=== PATIENT | female | born 1940 | race Caucasian/White ===

== ENCOUNTER 2018-02-12 08:00 | Outpatient (CLI) | payer MEDICARE, OTHER ==
[2018-02-12 12:53] LABS: BASOPHILS # (AUTO) 0.1 10^3/uL (0.0-0.1); BASOPHILS % (AUTO) 0.8 %; EOSINOPHILS # (AUTO) 0.2 10^3/uL (0.0-0.7); EOSINOPHILS % (AUTO) 1.8 %; LYMPHOCYTES # (AUTO) 1.9 10^3/uL (1.5-3.5); LYMPHOCYTES % (AUTO) 20.4 %; MEAN CORPUSCULAR HEMOGLOBIN 29.4 pg (27.0-31.0); MEAN CORPUSCULAR HGB CONC 33.4 g/dL (32.0-36.0); MEAN CORPUSCULAR VOLUME 88.1 fL (81.0-99.0); MEAN PLATELET VOLUME 8.4 fL (7.9-10.8); MONOCYTES # (AUTO) 0.8 10^3/uL (0.0-1.0); MONOCYTES % (AUTO) 8.2 %; NEUTROPHILS # (AUTO) 6.5 10^3/uL (1.5-6.6); NEUTROPHILS % (AUTO) 68.8 %; PLT - PLATELET COUNT 256 10^3/uL (130-450); RED BLOOD COUNT 4.41 10^6/uL (4.20-5.40); RED CELL DISTRIBUTION WIDTH 13.5 % (12.0-15.0); WHITE BLOOD COUNT 9.4 x10^3/uL (4.8-10.8)
[2018-02-12 13:08] LABS: HB2 TOTAL 14.3 g/dL; HEMOGLOBIN A1C 1.45 g/dL; HEMOGLOBIN A1C % 11.4 % (4.6-6.2)
[2018-02-12 13:17] LABS: ALBUMIN 4.1 g/dL (3.2-5.5); ALBUMIN/GLOBULIN RATIO 1.2 (1.0-2.2); ALKALINE PHOSPHATASE 63 IU/L (42-121); ALT ALANINE AMINOTRANSFERASE 17 IU/L (10-60); AST ASPARTATE AMINOTRANSFERASE 21 IU/L (10-42); BUN - BLOOD UREA NITROGEN 11 mg/dL (6-20); CALCIUM 9.5 mg/dL (8.5-10.3); CARBON DIOXIDE - CO2 28 mmol/L (21-32); CHLORIDE 102 mmol/L (101-111); CHOL/HDL RATIO 4.1 (<4.4); CHOLESTEROL 244 mg/dL; CREATININE 0.4 mg/dL (0.4-1.0); GFR - MDRD 156 (>89); GLUCOSE 171 mg/dL (70-100); HDL CHOLESTEROL 59 mg/dL; LDL CHOLESTEROL,CALCULATED 163 mg/dL; LDL/HDL RATIO 2.8 (<4.4); SODIUM 138 mmol/L (135-145); TOTAL PROTEIN 7.5 g/dL (6.7-8.2); VLDL CHOLESTEROL 22 mg/dL
== END 2018-02-12 08:01 | disposition home or self-care (01) ==
LOC: LAB.WCP 08:00
PROVIDERS: ATTEND Physician Assistant
DX: Z00.00 Encounter for general adult medical examination without abnormal findings (principal); I10 Essential (primary) hypertension; E11.9 Type 2 diabetes mellitus without complications; E78.5 Hyperlipidemia, unspecified
CPT/HCPCS: 36415; 80053; 80061; 83036; 83721; 84443; 85025

== ENCOUNTER 2018-04-21 19:25 | Emergency (ER) | payer MEDICARE, OTHER ==
--- NOTE | 2018-04-21 23:02 | ED Physician Documentation ---
PD HPI Fall - Stated complaint Stated Complaint: GLF/HD INJ - Chief complaint Chief Complaint: Trauma Hd/Nk - History obtained from History obtained from: Patient, Family - History of Present Illness Mechanism of injury: Slipped Fall distance: Standing position Where injury occurred: Home Timing - onset: Enter time (1844) Injury(ies) location: Head, Face, Left Lower Extremity Quality of pain: Pain Associated symptoms: No: LOC, AMS, Amnesia, Seizures, Ear drainage, Nasal drainage, Neck pain, Weakness, Paresthesias, Dyspnea, Nausea / vomiting, Hematemesis, Abdominal distension Symptoms improve with: Rest Worsens with: Movement, Palpation Contributing factors: No: Anticoagulated Similar symptoms before: Has not had sx before Recently seen: Not recently seen - Additional information Additional information: 77-year-old female with history of type 2 diabetes was outside watering her plants and she noted that the bottoms of her shoes seemed a little slippery and then as she was being very cautious walking on wet cement she slipped and fell. She landed on her face bruising her left forehead and bruising her left knee and ankle. She has been able to walk into the emergency department she has some pain in her ankle laterally. She has an abrasion to the knee. Review of Systems Constitutional: denies: Fever Eyes: denies: Decreased vision Ears: denies: Ear pain Nose: denies: Rhinorrhea / runny nose, Congestion Throat: denies: Sore throat Cardiac: denies: Chest pain / pressure Respiratory: denies: Dyspnea, Cough GI: denies: Abdominal Pain, Nausea, Vomiting : denies: Dysuria, Frequency Skin: denies: Rash Musculoskeletal: denies: Neck pain, Back pain, Extremity pain Neurologic: reports: Head injury. 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 : None HEENT: None Psych: None Musculoskeletal: None Derm: None - Past Surgical History Past Surgical History: Yes General: Cholecystectomy Ortho: Knee replacement - Present Medications Home Medications: Ambulatory Orders Medication Instructions Recorded Confirmed Aspirin 04/21/18 Insulin Regular, Human [Humulin R] 04/21/18 04/21/18 metFORMIN [Glucophage] 04/21/18 - Allergies Allergies/Adverse Reactions: Allergies Allergy/AdvReac Type Severity Reaction Status Date / Time Sulfa (Sulfonamide AdvReac Itching Verified 04/21/18 19:42 Antibiotics) - Social History Does the pt smoke?: No Smoking Status: Never smoker Does the pt drink ETOH?: No Does the pt have substance abuse?: No - Immunizations Immunizations are current?: Yes - POLST Patient has POLST: No PD ED PE NORMAL - Vitals Vital signs reviewed: Yes (hypertensive mild ) - General General: Alert and oriented X 3, No acute distress, Well developed/nourished - HEENT HEENT: PERRL, EOMI, Other (There is a hematoma to the left forehead that is impressive with abrasion as well to the hematoma and the nasal bridge. ) - Neck Neck: Supple, no meningeal sign, No bony TTP - Cardiac Cardiac: RRR, No murmur - Respiratory Respiratory: No respiratory distress, Clear bilaterally - Abdomen Abdomen: Soft, Non tender - Back Back: No CVA TTP, No spinal TTP - Derm Derm: Normal color, Warm and dry, No rash - Extremities Extremities: No deformity, No edema, Other (There is an abrasion to the left knee over the patella and the ligaments are stable to testing and there is no eviedence of an effusion. There is tenderness to the lateral malleolus and to the distal fibula on the left. There is no swelling and the distal n/v is intact. 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, No motor deficit, No sensory deficit, Normal speech Eye Opening: Spontaneous Motor: Obeys Commands Verbal: Oriented GCS Score: 15 - Psych Psych: Normal mood, Normal affect Results - Vitals Vitals: Vital Signs - 24 hr 04/21/18 04/21/18 04/21/18 19:37 21:07 23:03 Temperature 36.2 C L 36.2 C L Heart Rate 72 77 Respiratory 20 18 18 Rate Blood Pressure 162/91 H 143/62 H O2 Saturation 98 98 Oxygen O2 Source Room air - Labs Labs: Laboratory Tests 04/21/18 23:00 Urine Color YELLOW Urine Clarity CLEAR Urine pH 5.5 Ur Specific [place] <=1.005 Urine Protein NEGATIVE Urine Glucose (UA) NEGATIVE Urine Ketones NEGATIVE Urine Occult Blood NEGATIVE Urine Nitrite NEGATIVE Urine Bilirubin NEGATIVE Urine Urobilinogen 0.2 (NORMAL) Ur Leukocyte Esterase NEGATIVE Ur Microscopic Review NOT INDICATED Urine Culture Comments NOT INDICATED - Rads (name of study) left ankle Radiology: Prelim report reviewed (Impression: No evidence of fracture or dislocation.), EMP read indepedently, See rad report Procedures - IVC sono (time) 2300 Bedside IVC sono: IVC measures (cm) (1.20), IVC collapsed c insp (cm) (complete) , Dehydration (est 1 liter deficit.) PD MEDICAL DECISION MAKING - ED course Complexity details: reviewed results, re-evaluated patient, considered differential, d/w patient, d/w family ED course: 77-year-old diabetic female has slipped on water with slick shoes fallen and struck her face. She did not have loss of consciousness she has no signs of concussion at this time she does have a hematoma to her forehead and she has some pain in her left ankle and abrasion to her knee. X-rays of the ankle without evidence of fracture. Urinalysis was normal. She was mildly dehydrated on interrogation of the inferior vena cava. She is able take oral fluids. - Sepsis Event Vital Signs: Vital Signs - 24 hr 04/21/18 04/21/18 04/21/18 19:37 21:07 23:03 Temperature 36.2 C L 36.2 C L Heart Rate 72 77 Respiratory 20 18 18 Rate Blood Pressure 162/91 H 143/62 H O2 Saturation 98 98 Oxygen O2 Source Room air Departure - Departure Disposition: 01 Home, Self Care Clinical Impression: Dehydration Traumatic hematoma of forehead Qualifiers: Encounter type: initial encounter Qualified Code(s): S00.83XA - Contusion of other part of head, initial encounter Ankle sprain Qualifiers: Encounter type: initial encounter Involved ligament of ankle: calcaneofibular ligament Laterality: left Qualified Code(s): S93.412A - Sprain of calcaneofibular ligament of left ankle, initial encounter Condition: Stable Instructions: ED Dehydration Follow-Up: Estelle Maier PA [Primary Care Provider] -
[2018-04-21 23:09] LABS: BILIRUBIN,URINE NEGATIVE (NEGATIVE); GLUCOSE, URINE (UA) NEGATIVE (NEGATIVE); KETONES,URINE (UA) NEGATIVE (NEGATIVE); LEUKOCYTE ESTERASE, URINE NEGATIVE (NEGATIVE); NITRITE,URINE NEGATIVE (NEGATIVE); OCCULT BLOOD,URINE NEGATIVE (NEGATIVE); PH,URINE 5.5 PH (5.0-7.5); PROTEIN,URINE NEGATIVE (NEGATIVE); UROBILINOGEN,URINE 0.2 (NORMAL) E.U./dL (NORMAL)
[2018-04-21 23:14] LABS: CLARITY,URINE CLEAR (CLEAR)
--- NOTE | 2018-04-21 23:17 | XRAY Report ---
Procedure Date: 04/21/2018 Accession Number: [id number] / [id number] Procedure: XR - Ankle 3 View LT CPT Code: FULL RESULT: EXAM: LEFT ANKLE RADIOGRAPHY EXAM DATE: 04/21/2018 11:10 PM. CLINICAL HISTORY: Fall lateral pain. COMPARISON: None. TECHNIQUE: 3 views. FINDINGS: Bones: No fracture or focal bony lesion. Joints: No evidence of dislocation. Soft Tissues: There are calcifications of the plantar soft tissues. IMPRESSION: No evidence of fracture or dislocation. RADIA
[2018-04-21 23:36] VITALS: BP 168/75
== END 2018-04-21 23:50 | disposition home or self-care (01) ==
LOC: ED 19:25
DX: S00.83XA Contusion of other part of head, initial encounter (principal); S00.31XA Abrasion of nose, initial encounter; S80.212A Abrasion, left knee, initial encounter; W01.198A Fall on same level from slipping, tripping and stumbling with subsequent striking against other object, initial encounter; Y93.H2 Activity, gardening and landscaping; Y92.007 Garden or yard of unspecified non-institutional (private) residence as the place of occurrence of the external cause
CPT/HCPCS: 81001; 81003; 87086; 99283; 99284

== ENCOUNTER 2018-09-15 09:14 | Outpatient (CLI) | payer MEDICARE, OTHER ==
[2018-09-15 13:22] LABS: HB2 TOTAL 12.7 g/dL; HEMOGLOBIN A1C 0.86 g/dL; HEMOGLOBIN A1C % 8.3 % (4.6-6.2)
== END 2018-09-15 23:59 | disposition home or self-care (01) ==
LOC: LAB.WCP 09:14
PROVIDERS: ATTEND Physician Assistant
DX: E11.65 Type 2 diabetes mellitus with hyperglycemia (principal)
CPT/HCPCS: 36415; 83036

== ENCOUNTER 2019-08-10 08:00 | Outpatient (CLI) | payer MEDICARE, OTHER ==
[2019-08-10 18:21] LABS: BASOPHILS # (AUTO) 0.1 10^3/uL (0.0-0.1); EOSINOPHILS # (AUTO) 0.2 10^3/uL (0.0-0.7); EOSINOPHILS % (AUTO) 2.5 %; HGB - HEMOGLOBIN 12.3 g/dL (12.0-16.0); LYMPHOCYTES % (AUTO) 31.5 %; MEAN CORPUSCULAR HEMOGLOBIN 28.3 pg (27.0-31.0); MEAN CORPUSCULAR HGB CONC 30.6 g/dL (32.0-36.0); MEAN CORPUSCULAR VOLUME 92.4 fL (81.0-99.0); MEAN PLATELET VOLUME 10.7 fL (7.9-10.8); MONOCYTES # (AUTO) 0.5 10^3/uL (0.0-1.0); MONOCYTES % (AUTO) 8.6 %; NEUTROPHILS # (AUTO) 3.5 10^3/uL (1.5-6.6); NEUTROPHILS % (AUTO) 56.1 %; PLT - PLATELET COUNT 279 10^3/uL (130-450); RED BLOOD COUNT 4.35 10^6/uL (4.20-5.40); WHITE BLOOD COUNT 6.3 x10^3/uL (4.8-10.8)
[2019-08-10 18:39] LABS: ALBUMIN 4.4 g/dL (3.2-5.5); ALBUMIN/GLOBULIN RATIO 1.3 (1.0-2.2); ALKALINE PHOSPHATASE 58 IU/L (42-121); ALT ALANINE AMINOTRANSFERASE 26 IU/L (10-60); AST ASPARTATE AMINOTRANSFERASE 25 IU/L (10-42); BILIRUBIN,TOTAL 0.7 mg/dL (0.2-1.0); BUN - BLOOD UREA NITROGEN 10 mg/dL (6-20); CALCIUM 9.8 mg/dL (8.5-10.3); CARBON DIOXIDE - CO2 27 mmol/L (21-32); CHLORIDE 103 mmol/L (101-111); CHOL/HDL RATIO 2.8 (<4.4); CHOLESTEROL 169 mg/dL; CREATININE 0.5 mg/dL (0.4-1.0); GFR - MDRD 120 (>89); GLUCOSE 139 mg/dL (70-100); HDL CHOLESTEROL 60 mg/dL; LDL CHOLESTEROL,CALCULATED 90 mg/dL; LDL/HDL RATIO 1.5 (<4.4); SODIUM 140 mmol/L (135-145); TOTAL PROTEIN 7.8 g/dL (6.7-8.2); VLDL CHOLESTEROL 19 mg/dL
[2019-08-10 18:40] LABS: CREATININE,URINE 72.4 mg/dL; MICROALBUM/CREATININE RATIO,UR 59.4 ug/mg (<30.0); MICROALBUMIN,URINE 4.3 mg/dL (0-300.0)
[2019-08-10 18:45] LABS: HB2 TOTAL 12.6 g/dL; HEMOGLOBIN A1C 1.29 g/dL; HEMOGLOBIN A1C % 11.5 % (4.6-6.2)
== END 2019-08-10 23:59 | disposition home or self-care (01) ==
LOC: LAB.WCP 08:00
PROVIDERS: ATTEND Physician Assistant
DX: E11.65 Type 2 diabetes mellitus with hyperglycemia (principal); I10 Essential (primary) hypertension
CPT/HCPCS: 36415; 80053; 80061; 82043; 82570; 83036; 83721; 84443; 85025

== ENCOUNTER 2019-10-14 09:59 | Outpatient (CLI) | payer MEDICARE, OTHER ==
[2019-10-14 19:17] LABS: ALBUMIN 4.1 g/dL (3.2-5.5); ALBUMIN/GLOBULIN RATIO 1.1 (1.0-2.2); ALKALINE PHOSPHATASE 76 IU/L (42-121); ALT ALANINE AMINOTRANSFERASE 23 IU/L (10-60); AST ASPARTATE AMINOTRANSFERASE 24 IU/L (10-42); BILIRUBIN,TOTAL 0.4 mg/dL (0.2-1.0); BUN - BLOOD UREA NITROGEN 15 mg/dL (6-20); CALCIUM 9.7 mg/dL (8.5-10.3); CARBON DIOXIDE - CO2 24 mmol/L (21-32); CHLORIDE 107 mmol/L (101-111); CHOL/HDL RATIO 2.5 (<4.4); CHOLESTEROL 166 mg/dL; CREATININE 0.7 mg/dL (0.4-1.0); GFR - MDRD 81 (>89); GLUCOSE 242 mg/dL (70-100); HDL CHOLESTEROL 67 mg/dL; LDL CHOLESTEROL,CALCULATED 83 mg/dL; LDL/HDL RATIO 1.2 (<4.4); SODIUM 141 mmol/L (135-145); TOTAL PROTEIN 7.7 g/dL (6.7-8.2); VLDL CHOLESTEROL 16 mg/dL
[2019-10-14 20:10] LABS: HB2 TOTAL 11.8 g/dL; HEMOGLOBIN A1C 0.83 g/dL; HEMOGLOBIN A1C % 8.6 % (4.6-6.2)
== END 2019-10-14 23:59 | disposition home or self-care (01) ==
LOC: LAB.WCP 09:59
PROVIDERS: ATTEND Family Medicine
DX: E11.65 Type 2 diabetes mellitus with hyperglycemia (principal)
CPT/HCPCS: 36415; 80053; 80061; 83036; 83721

== ENCOUNTER 2020-08-28 18:57 | Emergency (ER) | payer MEDICARE, OTHER ==
[2020-08-28 19:27] LABS: BASOPHILS % (AUTO) 0.6 %; EOSINOPHILS # (AUTO) 0.1 10^3/uL (0.0-0.7); EOSINOPHILS % (AUTO) 1.5 %; HGB - HEMOGLOBIN 12.7 g/dL (12.0-16.0); LYMPHOCYTES % (AUTO) 28.9 %; MEAN CORPUSCULAR HEMOGLOBIN 29.4 pg (27.0-31.0); MEAN CORPUSCULAR HGB CONC 32.8 g/dL (32.0-36.0); MEAN CORPUSCULAR VOLUME 89.6 fL (81.0-99.0); MEAN PLATELET VOLUME 9.6 fL (7.9-10.8); MONOCYTES # (AUTO) 0.5 10^3/uL (0.0-1.0); MONOCYTES % (AUTO) 6.9 %; NEUTROPHILS # (AUTO) 4.2 10^3/uL (1.5-6.6); NEUTROPHILS % (AUTO) 61.7 %; PLT - PLATELET COUNT 262 10^3/uL (130-450); RED BLOOD COUNT 4.32 10^6/uL (4.20-5.40); RED CELL DISTRIBUTION WIDTH 12.8 % (12.0-15.0); WHITE BLOOD COUNT 6.8 x10^3/uL (4.8-10.8)
[2020-08-28 19:28] LABS: VBG BASE EXCESS -2.8 mmol/L (-2 - +2); VBG PCO2 46.4 mmHg (41-51); VBG PH 7.322 (7.31-7.41); VBG PO2 24.6 mmHg (25-47); VBG TOTAL CO2 24.9 mmol/L (24-29)
[2020-08-28 19:31] LABS: KETONES, SERUM (ACETEST) NEGATIVE (NEGATIVE)
--- NOTE | 2020-08-28 19:35 | ED Physician Documentation ---
History of Present Illness - Stated complaint Stated Complaint: high blood sugar - Chief complaint Chief Complaint: General - History obtained from History obtained from: Patient - History of Present Illness Timing: Today Pain level max: 0 Pain level now: 0 - Additonal information Additional information: Patient is a 80-year-old female with a history of diabetes who presents to the emergency department after checking her blood sugar today and it read "high". She has no symptoms currently. She has been decreasing her Metformin because she is afraid that she will run out. She is also running low on her insulin. She does not yet have an appointment with her doctor. No vomiting. No chest pain. No fever. No chills. No recent illness. 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 : None HEENT: Other Psych: None Musculoskeletal: Osteoarthritis, Other Derm: None - Past Surgical History Past Surgical History: Yes General: Cholecystectomy Ortho: Knee replacement - Present Medications Home Medications: Ambulatory Orders Medication Instructions Recorded Confirmed Aspirin 1 tab PO DAILY 04/21/18 08/28/20 Atorvastatin Calcium 1 tab PO DAILY 10/06/18 08/28/20 Fluticasone Propionate 1 spray SARAH DAILY PRN 10/06/18 08/28/20 Telmisartan [Micardis] 1 tab PO DAILY 10/06/18 08/28/20 Cephalexin [Keflex] 500 mg PO Q6H #28 capsule 08/28/20 Insulin Glargine [Lantus Solostar] 16 units SQ DAILY #1 08/28/20 metFORMIN [Glucophage] 2 tab PO BID #120 tab 08/28/20 - Allergies Allergies/Adverse Reactions: Allergies Allergy/AdvReac Type Severity Reaction Status Date / Time Sulfa (Sulfonamide Allergy Anaphylaxis Verified 08/28/20 19:01 Antibiotics) acetaminophen [From Vicodin] AdvReac Unknown Verified 08/28/20 19:01 hydrocodone [From Vicodin] AdvReac Unknown Verified 08/28/20 19:01 lisinopril AdvReac Unknown Verified 08/28/20 19:01 - Social History Does the pt smoke?: No Smoking Status: Never smoker Does the pt drink ETOH?: No Does the pt have substance abuse?: No - Immunizations Immunizations are current?: Yes - POLST Patient has POLST: No PD ED PE NORMAL - Vitals Vital signs reviewed: Yes - General General: Alert and oriented X 3, No acute distress - HEENT HEENT: Moist mucous membranes - Neck Neck: Supple, no meningeal sign - Cardiac Cardiac: RRR - Respiratory Respiratory: No respiratory distress, Clear bilaterally - Abdomen Abdomen: Soft, Non tender, Non distended - Derm Derm: Warm and dry - Neuro Neuro: Alert and oriented X 3 Results - Vitals Vitals: Vital Signs - 24 hr 08/28/20 08/28/20 19:01 20:48 Temperature 36.6 C Heart Rate 76 70 Respiratory 16 18 Rate Blood Pressure 130/100 H 134/94 H O2 Saturation 100 97 Oxygen O2 Source Room air - Labs Labs: Microbiology 08/28/20 19:30 Urine Culture - Preliminary Urine,Clean Catch CULTURE IN PROGRESS. RESULTS TO FOLLOW. Laboratory Tests 08/28/20 08/28/20 08/28/20 19:05 19:19 19:19 WBC 6.8 RBC 4.32 Hgb 12.7 Hct 38.7 MCV 89.6 MCH 29.4 MCHC 32.8 RDW 12.8 Plt Count 262 MPV 9.6 Neut # (Auto) 4.2 Lymph # (Auto) 2.0 [place] # (Auto) 0.5 Eos # (Auto) 0.1 Baso # (Auto) 0.0 Absolute Nucleated RBC 0.00 Nucleated RBC % 0.0 VBG pH VBG pCO2 VBG pO2 VBG HCO3 VBG Total CO2 VBG O2 Saturation VBG Base Excess Sodium 134 L Potassium 3.9 Chloride 95 L Carbon Dioxide 25 Anion Gap 14.0 H BUN 15 Creatinine 0.7 Estimated GFR (MDRD) 81 L Glucose 411 H POC Whole Bld Glucose 380 H Estimat Average Glucose Hemoglobin A1c % Calcium 9.9 Total Bilirubin 0.6 AST 26 ALT 25 Alkaline Phosphatase 86 Total Protein 8.3 H Albumin 4.4 Globulin 3.9 Albumin/Globulin Ratio 1.1 Urine Color Urine Clarity Urine pH Ur Specific [place] Urine Protein Urine Glucose (UA) Urine Ketones Urine Occult Blood Urine Nitrite Urine Bilirubin Urine Urobilinogen Ur Leukocyte Esterase Urine RBC Urine WBC Urine WBC Clumps Ur Squamous Epith Cells Urine Bacteria Ur Microscopic Review Urine Culture Comments Serum Ketones NEGATIVE 08/28/20 08/28/20 08/28/20 19:19 19:19 19:30 WBC RBC Hgb Hct MCV MCH MCHC RDW Plt Count MPV Neut # (Auto) Lymph # (Auto) [place] # (Auto) Eos # (Auto) Baso # (Auto) Absolute Nucleated RBC Nucleated RBC % VBG pH 7.322 VBG pCO2 46.4 VBG pO2 24.6 L VBG HCO3 23.5 VBG Total CO2 24.9 VBG O2 Saturation 46.1 L VBG Base Excess -2.8 L Sodium Potassium Chloride Carbon Dioxide Anion Gap BUN Creatinine Estimated GFR (MDRD) Glucose POC Whole Bld Glucose Estimat Average Glucose 364 H Hemoglobin A1c % 14.3 H Calcium Total Bilirubin AST ALT Alkaline Phosphatase Total Protein Albumin Globulin Albumin/Globulin Ratio Urine Color YELLOW Urine Clarity HAZY Urine pH 5.5 Ur Specific [place] 1.010 Urine Protein NEGATIVE Urine Glucose (UA) >=1000 H Urine Ketones NEGATIVE Urine Occult Blood TRACE-INTA Urine Nitrite POSITIVE H Urine Bilirubin NEGATIVE Urine Urobilinogen 0.2 (NORMAL) Ur Leukocyte Esterase NEGATIVE Urine RBC 6-10 H Urine WBC >25 H Urine WBC Clumps PRESENT Ur Squamous Epith Cells RARE Squamous Urine Bacteria Many H Ur Microscopic Review INDICATED Urine Culture Comments INDICATED Serum Ketones PD MEDICAL DECISION MAKING - ED course Complexity details: reviewed results, re-evaluated patient, considered differential, d/w patient ED course: Patient with asymptomatic hyperglycemia. She does have a UTI and we will treat her for this. We will also refill her diabetic medications so that she can take her prescribed doses. Patient is well-appearing, nontoxic. Afebrile. Patient counseled regarding signs and symptoms for which I believe and urgent re- evaluation would be necessary. Patient with good understanding of and agreement to plan and is comfortable going home at this time This document was made in part using voice recognition software. While efforts are made to proofread this document, sound alike and grammatical errors may occur. Departure - Departure Disposition: 01 Home, Self Care Clinical Impression: Hyperglycemia UTI (urinary tract infection) Qualifiers: Urinary tract infection type: acute cystitis Hematuria presence: without hematuria Qualified Code(s): N30.00 - Acute cystitis without hematuria Condition: Good Instructions: ED UTI Cystitis Female Follow-Up: Estelle Maier PA [Primary Care Provider] - Within 3 Days Prescriptions: metFORMIN [Glucophage] 2 tab PO BID #120 tab Cephalexin [Keflex] 500 mg PO Q6H #28 capsule Insulin Glargine [Lantus Solostar] 16 units SQ DAILY #1 Comments: We will refill your medications for you tonight. Please take all antibiotics until gone as well. Follow-up with your doctor closely this week for repeat evaluation. Return if you worsen Discharge Date/Time: 08/28/20 20:48
[2020-08-28 19:37] LABS: ALBUMIN 4.4 g/dL (3.2-5.5); ALBUMIN/GLOBULIN RATIO 1.1 (1.0-2.2); ALKALINE PHOSPHATASE 86 IU/L (42-121); ALT ALANINE AMINOTRANSFERASE 25 IU/L (10-60); AST ASPARTATE AMINOTRANSFERASE 26 IU/L (10-42); BILIRUBIN,TOTAL 0.6 mg/dL (0.2-1.0); BUN - BLOOD UREA NITROGEN 15 mg/dL (6-20); CALCIUM 9.9 mg/dL (8.5-10.3); CARBON DIOXIDE - CO2 25 mmol/L (21-32); CHLORIDE 95 mmol/L (101-111); CREATININE 0.7 mg/dL (0.4-1.0); GLUCOSE 411 mg/dL (70-100); SODIUM 134 mmol/L (135-145); TOTAL PROTEIN 8.3 g/dL (6.7-8.2)
[2020-08-28 19:53] LABS: BILIRUBIN,URINE NEGATIVE (NEGATIVE); GLUCOSE, URINE (UA) >=1000 mg/dL (NEGATIVE); KETONES,URINE (UA) NEGATIVE (NEGATIVE); LEUKOCYTE ESTERASE, URINE NEGATIVE (NEGATIVE); NITRITE,URINE POSITIVE (NEGATIVE); OCCULT BLOOD,URINE TRACE-INTA (NEGATIVE); PH,URINE 5.5 PH (5.0-7.5); PROTEIN,URINE NEGATIVE (NEGATIVE); UROBILINOGEN,URINE 0.2 (NORMAL) E.U./dL (NORMAL)
[2020-08-28 20:00] LABS: BACTERIA,URINE Many /HPF (None Seen); CLARITY,URINE HAZY (CLEAR); SQUAMOUS EPITHELIAL CELL,UR RARE Squamous (<= Few); WBC CLUMPS,URINE PRESENT
[2020-08-28] MEDS ORDERED: LIDOCAINE 1% 2 ML VIAL MC ONE (20:14)
[2020-08-28] MEDS ORDERED: cefTRIAXone 1 GM VIAL IM STA (20:14)
[2020-08-28] MEDS ORDERED: INSULIN REGULAR HUMAN 100 UNIT/1 ML 10 ML MDV SUBQ STA (20:16)
[2020-08-28 20:35] LABS: HEMOGLOBIN A1c% 14.3 % (4.27-6.07)
[2020-08-28] MEDS ORDERED: INSULIN REGULAR HUMAN 300 UNIT/3 ML VIAL ONE (20:41)
[2020-08-28 20:48] VITALS: BP 134/94
== END 2020-08-28 20:48 | disposition home or self-care (01) ==
LOC: ED 18:57
DX: E11.65 Type 2 diabetes mellitus with hyperglycemia (principal); Z79.4 Long term (current) use of insulin; N30.00 Acute cystitis without hematuria; I10 Essential (primary) hypertension; T38.3X6A Underdosing of insulin and oral hypoglycemic [antidiabetic] drugs, initial encounter; Z91.138 Patient's unintentional underdosing of medication regimen for other reason
CPT/HCPCS: 80053; 81001; 82009; 82803; 83036; 85025; 87077; 87086; 87181; 96372; 99283; J1815; 81003

== ENCOUNTER 2021-07-28 08:00 | Outpatient (CLI) | payer MEDICARE, OTHER ==
[2021-07-28 18:03] LABS: BASOPHILS # (AUTO) 0.1 10^3/uL (0.0-0.1); BASOPHILS % (AUTO) 0.7 %; EOSINOPHILS # (AUTO) 0.2 10^3/uL (0.0-0.7); EOSINOPHILS % (AUTO) 1.9 %; HCT - HEMATOCRIT 39.3 % (37.0-47.0); HGB - HEMOGLOBIN 12.6 g/dL (12.0-16.0); LYMPHOCYTES # (AUTO) 2.6 10^3/uL (1.5-3.5); LYMPHOCYTES % (AUTO) 32.6 %; MEAN CORPUSCULAR HGB CONC 32.1 g/dL (32.0-36.0); MEAN CORPUSCULAR VOLUME 90.6 fL (81.0-99.0); MEAN PLATELET VOLUME 10.2 fL (7.9-10.8); MONOCYTES # (AUTO) 0.5 10^3/uL (0.0-1.0); MONOCYTES % (AUTO) 5.9 %; NEUTROPHILS # (AUTO) 4.7 10^3/uL (1.5-6.6); NEUTROPHILS % (AUTO) 58.7 %; PLT - PLATELET COUNT 311 10^3/uL (130-450); RED BLOOD COUNT 4.34 10^6/uL (4.20-5.40); RED CELL DISTRIBUTION WIDTH 12.9 % (12.0-15.0)
[2021-07-28 18:18] LABS: ALBUMIN 4.7 g/dL (3.2-5.5); ALBUMIN/GLOBULIN RATIO 1.3 (1.0-2.2); ALKALINE PHOSPHATASE 61 IU/L (42-121); ALT ALANINE AMINOTRANSFERASE 28 IU/L (10-60); AST ASPARTATE AMINOTRANSFERASE 28 IU/L (10-42); BILIRUBIN,TOTAL 0.6 mg/dL (0.2-1.0); BUN - BLOOD UREA NITROGEN 9 mg/dL (6-20); CALCIUM 10.3 mg/dL (8.5-10.3); CARBON DIOXIDE - CO2 28 mmol/L (21-32); CHLORIDE 100 mmol/L (101-111); CHOL/HDL RATIO 2.6 (<4.4); CHOLESTEROL 156 mg/dL; CREATININE 0.6 mg/dL (0.4-1.0); GFR - MDRD 96 (>89); GLUCOSE 132 mg/dL (70-100); HDL CHOLESTEROL 60 mg/dL; LDL CHOLESTEROL,CALCULATED 69 mg/dL; LDL/HDL RATIO 1.2 (<4.4); POTASSIUM 4.1 mmol/L (3.5-5.0); SODIUM 140 mmol/L (135-145); TOTAL PROTEIN 8.3 g/dL (6.7-8.2); TRIGLYCERIDES 137 mg/dL; VLDL CHOLESTEROL 27 mg/dL
[2021-07-28 18:28] LABS: THYROID STIMULATING HORMONE 0.7 uIU/mL (0.34-5.60)
[2021-07-28 18:36] LABS: CREATININE,URINE 39.2 mg/dL; MICROALBUM/CREATININE RATIO,UR 170.9 ug/mg (<30.0); MICROALBUMIN,URINE 6.7 mg/dL (0-300.0)
[2021-07-28 20:33] LABS: ESTIMATED AVERAGE GLUCOSE 235 mg/dL (70-100); HEMOGLOBIN A1c% 9.8 % (4.27-6.07)
== END 2021-07-28 23:59 | disposition home or self-care (01) ==
LOC: LAB.N 08:00
PROVIDERS: ATTEND Nurse Practitioner
DX: I10 Essential (primary) hypertension (principal); E11.8 Type 2 diabetes mellitus with unspecified complications
CPT/HCPCS: 36415; 80053; 80061; 82043; 82570; 82607; 83036; 83721; 84443; 85025

== ENCOUNTER 2022-03-27 12:52 | Outpatient (CLI) | payer MEDICARE, OTHER ==
[2022-03-27 17:47] LABS: ALBUMIN 4.3 g/dL (3.2-5.5); ALBUMIN/GLOBULIN RATIO 1.2 (1.0-2.2); BILIRUBIN,TOTAL 0.5 mg/dL (0.2-1.0); CALCIUM 9.4 mg/dL (8.5-10.3); CREATININE 0.6 mg/dL (0.4-1.0)
[2022-03-27 17:53] LABS: BASOPHILS % (AUTO) 0.5 %; EOSINOPHILS # (AUTO) 0.1 10^3/uL (0.0-0.7); EOSINOPHILS % (AUTO) 1.6 %; HCT - HEMATOCRIT 36.6 % (37.0-47.0); HGB - HEMOGLOBIN 11.8 g/dL (12.0-16.0); LYMPHOCYTES # (AUTO) 1.8 10^3/uL (1.5-3.5); LYMPHOCYTES % (AUTO) 22.6 %; MEAN CORPUSCULAR HEMOGLOBIN 29.2 pg (27.0-31.0); MEAN CORPUSCULAR HGB CONC 32.2 g/dL (32.0-36.0); MEAN CORPUSCULAR VOLUME 90.6 fL (81.0-99.0); MONOCYTES # (AUTO) 0.5 10^3/uL (0.0-1.0); MONOCYTES % (AUTO) 6.2 %; NEUTROPHILS # (AUTO) 5.6 10^3/uL (1.5-6.6); NEUTROPHILS % (AUTO) 68.9 %; PLT - PLATELET COUNT 291 10^3/uL (130-450); RED BLOOD COUNT 4.04 10^6/uL (4.20-5.40); WHITE BLOOD COUNT 8.1 x10^3/uL (4.8-10.8)
[2022-03-27 17:54] LABS: MICROALBUM/CREATININE RATIO,UR 276.5 ug/mg (<30.0); MICROALBUMIN,URINE 4.7 mg/dL (0-300.0)
[2022-03-27 18:29] LABS: THYROID STIMULATING HORMONE 0.8 uIU/mL (0.34-5.60)
[2022-03-27 21:01] LABS: ESTIMATED AVERAGE GLUCOSE 223 mg/dL (70-100); HEMOGLOBIN A1c% 9.4 % (4.27-6.07)
== END 2022-03-27 12:53 | disposition home or self-care (01) ==
LOC: LAB.N 12:52
PROVIDERS: ATTEND Nurse Practitioner
DX: E11.8 Type 2 diabetes mellitus with unspecified complications (principal); R53.83 Other fatigue
CPT/HCPCS: 36415; 80053; 82043; 82570; 83036; 84443; 85025

== ENCOUNTER 2022-12-20 09:00 | Outpatient (CLI) | payer MEDICARE, OTHER ==
[2022-12-20 12:06] LABS: BASOPHILS # (AUTO) 0.1 10^3/uL (0.0-0.1); BASOPHILS % (AUTO) 1.1 %; EOSINOPHILS # (AUTO) 0.2 10^3/uL (0.0-0.7); EOSINOPHILS % (AUTO) 3.2 %; HCT - HEMATOCRIT 37.3 % (37.0-47.0); HGB - HEMOGLOBIN 12.2 g/dL (12.0-16.0); LYMPHOCYTES # (AUTO) 2.3 10^3/uL (1.5-3.5); LYMPHOCYTES % (AUTO) 34.7 %; MEAN CORPUSCULAR HEMOGLOBIN 28.8 pg (27.0-31.0); MEAN CORPUSCULAR HGB CONC 32.7 g/dL (32.0-36.0); MEAN CORPUSCULAR VOLUME 88.2 fL (81.0-99.0); MONOCYTES # (AUTO) 0.5 10^3/uL (0.0-1.0); NEUTROPHILS # (AUTO) 3.5 10^3/uL (1.5-6.6); NEUTROPHILS % (AUTO) 52.7 %; PLT - PLATELET COUNT 299 10^3/uL (130-450); RED BLOOD COUNT 4.23 10^6/uL (4.20-5.40); RED CELL DISTRIBUTION WIDTH 13.2 % (12.0-15.0); WHITE BLOOD COUNT 6.6 x10^3/uL (4.8-10.8)
[2022-12-20 12:11] LABS: ALBUMIN/GLOBULIN RATIO 1.1 (1.0-2.2); BILIRUBIN,TOTAL 0.5 mg/dL (0.2-1.0); CALCIUM 9.4 mg/dL (8.5-10.3); CREATININE 0.6 mg/dL (0.4-1.0); POTASSIUM 3.7 mmol/L (3.5-5.0); TOTAL PROTEIN 7.6 g/dL (6.7-8.2)
[2022-12-20 12:49] LABS: ESTIMATED AVERAGE GLUCOSE 289 mg/dL (70-100); HEMOGLOBIN A1c% 11.7 % (4.27-6.07)
== END 2022-12-20 09:15 | disposition home or self-care (01) ==
LOC: LAB.N 09:00
PROVIDERS: ATTEND Registered Nurse
DX: R73.9 Hyperglycemia, unspecified (principal); G44.309 Post-traumatic headache, unspecified, not intractable; S09.90XA Unspecified injury of head, initial encounter
CPT/HCPCS: 36415; 80053; 83036; 85025

== ENCOUNTER 2022-12-24 16:22 | Outpatient (CLI) | payer MEDICARE, OTHER ==
--- NOTE | 2022-12-25 01:56 | CT Report ---
PROCEDURE: HEAD WO INDICATIONS: HEADACHE TECHNIQUE: Noncontrast 4.5 mm thick angled axial sections acquired from the foramen magnum to the vertex. For r adiation dose reduction, the following was used: automated exposure control, adjustment of mA and/or kV according to patient size. COMPARISON: None. FINDINGS: Image quality: Excellent. CSF spaces: There is moderate cerebral volume loss with prominence of the ventricles and sulci. Basa l cisterns are patent. No extra-axial fluid collections. Brain: No intracranial hemorrhage, mass, or mass effect. Head-white matter interface is preserved. T here are subcortical and periventricular white matter hypodensities consistent with mild chronic smal l vessel ischemic changes. Skull and face: Calvarium and visualized facial bones are intact, without suspicious lesions. Sinuses: Visualized sinuses and mastoids are clear. IMPRESSION: 1. No acute intracranial abnormality. 2. Moderate cerebral volume loss and mild chronic white matter small vessel ischemic changes. Reviewed by: Carlos Enrique Rodriguez MD on 12/25/2022 1:55 AM PDT Approved by: Carlos Enrique Rodriguez MD on 12/25/2022 1:55 AM PDT Station ID: [id number]
== END 2022-12-24 16:23 | disposition home or self-care (01) ==
LOC: DI 16:22
PROVIDERS: ATTEND Registered Nurse
DX: S09.90XA Unspecified injury of head, initial encounter (principal); G44.309 Post-traumatic headache, unspecified, not intractable

== ENCOUNTER 2023-04-23 09:42 | Outpatient (CLI) | payer MEDICARE, OTHER ==
[2023-04-23 12:53] LABS: BASOPHILS # (AUTO) 0.1 10^3/uL (0.0-0.1); BASOPHILS % (AUTO) 0.6 %; EOSINOPHILS # (AUTO) 0.3 10^3/uL (0.0-0.7); EOSINOPHILS % (AUTO) 3.4 %; HCT - HEMATOCRIT 33.9 % (37.0-47.0); HGB - HEMOGLOBIN 11.1 g/dL (12.0-16.0); LYMPHOCYTES # (AUTO) 2.3 10^3/uL (1.5-3.5); MEAN CORPUSCULAR HEMOGLOBIN 29.4 pg (27.0-31.0); MEAN CORPUSCULAR HGB CONC 32.7 g/dL (32.0-36.0); MEAN CORPUSCULAR VOLUME 89.9 fL (81.0-99.0); MEAN PLATELET VOLUME 10.3 fL (7.9-10.8); MONOCYTES # (AUTO) 0.6 10^3/uL (0.0-1.0); MONOCYTES % (AUTO) 7.2 %; NEUTROPHILS # (AUTO) 5.1 10^3/uL (1.5-6.6); NEUTROPHILS % (AUTO) 60.6 %; PLT - PLATELET COUNT 259 10^3/uL (130-450); RED BLOOD COUNT 3.77 10^6/uL (4.20-5.40); RED CELL DISTRIBUTION WIDTH 13.4 % (12.0-15.0); WHITE BLOOD COUNT 8.3 x10^3/uL (4.8-10.8)
[2023-04-23 13:22] LABS: ALBUMIN 4.4 g/dL (3.2-5.5); ALBUMIN/GLOBULIN RATIO 1.5 (1.0-2.2); ALKALINE PHOSPHATASE 55 IU/L (42-121); ALT ALANINE AMINOTRANSFERASE 18 IU/L (10-60); AST ASPARTATE AMINOTRANSFERASE 20 IU/L (10-42); BILIRUBIN,TOTAL 0.6 mg/dL (0.2-1.0); BUN - BLOOD UREA NITROGEN 11 mg/dL (6-20); CARBON DIOXIDE - CO2 32 mmol/L (21-32); CHLORIDE 104 mmol/L (101-111); CHOL/HDL RATIO 2.1 (<4.4); CHOLESTEROL 120 mg/dL; CREATININE 0.6 mg/dL (0.6-1.3); GFR - MDRD 96 (>89); GLUCOSE 109 mg/dL (74-104); HDL CHOLESTEROL 56 mg/dL; LDL CHOLESTEROL,CALCULATED 48 mg/dL; LDL/HDL RATIO 0.9 (<4.4); SODIUM 141 mmol/L (135-145); TOTAL PROTEIN 7.3 g/dL (6.4-8.9); TRIGLYCERIDES 82 mg/dL (48-352); VLDL CHOLESTEROL 16 mg/dL
[2023-04-23 13:31] LABS: CREATININE,URINE 34.9 mg/dL; MICROALBUM/CREATININE RATIO,UR 200.6 ug/mg (<30.0)
[2023-04-23 13:51] LABS: ESTIMATED AVERAGE GLUCOSE 171 mg/dL (70-100); HEMOGLOBIN A1c% 7.6 % (4.27-6.07)
== END 2023-04-23 09:43 | disposition home or self-care (01) ==
LOC: LAB.N 09:42
PROVIDERS: ATTEND Nurse Practitioner
DX: E11.8 Type 2 diabetes mellitus with unspecified complications (principal); E78.5 Hyperlipidemia, unspecified; R53.83 Other fatigue
CPT/HCPCS: 36415; 80053; 80061; 82043; 82570; 83036; 83721; 84443; 85025

== ENCOUNTER 2023-10-28 12:27 | Outpatient (CLI) | payer MEDICARE, OTHER ==
[2023-10-28 21:11] LABS: ESTIMATED AVERAGE GLUCOSE 171 mg/dL (70-100); HEMOGLOBIN A1c% 7.6 % (4.27-6.07)
== END 2023-10-28 12:28 | disposition home or self-care (01) ==
LOC: LAB.N 12:27
PROVIDERS: ATTEND Nurse Practitioner
DX: E11.8 Type 2 diabetes mellitus with unspecified complications (principal)
CPT/HCPCS: 36415; 83036

== ENCOUNTER 2023-12-18 02:28 | Outpatient (CLI) | payer MEDICARE, OTHER | END 2023-12-18 02:29 | disposition critical access hospital (66) | LOC: EMS 02:28 | DX: R41.0 Disorientation, unspecified (principal); R05.9 Cough, unspecified; R00.0 Tachycardia, unspecified | CPT/HCPCS: A0425; A0429 ==

== ENCOUNTER 2023-12-18 02:50 | Inpatient (IN) | payer MEDICARE, OTHER ==
--- NOTE | 2023-12-18 03:00 | ED Physician Documentation ---
History of Present Illness - Stated complaint Stated Complaint: CONFUSION/COUGH - History obtained from History obtained from: Patient, EMS - Additonal information Additional information: 83yF with pmh dm, htn, hld, presents bibems after called them for ams and listlessness. patient came from home where she lives independently with . she is s/p 200 cc ivf. fingerstick in 200s in the field. further history limited by patient ams. she is aoX 1 only. 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 : None HEENT: Other Psych: None Musculoskeletal: Osteoarthritis, Other Derm: None - Past Surgical History Past Surgical History: Yes General: Cholecystectomy Ortho: Knee replacement - Present Medications Home Medications: Ambulatory Orders Medication Instructions Recorded Confirmed Aspirin 1 tab PO DAILY 04/21/18 08/28/20 Atorvastatin Calcium 1 tab PO DAILY 10/06/18 08/28/20 Fluticasone Propionate 1 spray SARAH DAILY PRN 10/06/18 08/28/20 Telmisartan [Micardis] 1 tab PO DAILY 10/06/18 08/28/20 Insulin Glargine [Lantus Solostar] 16 units SQ DAILY #1 08/28/20 cephALEXin [Keflex] 500 mg PO Q6H #28 capsule 08/28/20 metFORMIN [Glucophage] 2 tab PO BID #120 tab 08/28/20 - Allergies Allergies/Adverse Reactions: Allergies Allergy/AdvReac Type Severity Reaction Status Date / Time Sulfa (Sulfonamide Allergy Anaphylaxis Verified 12/18/23 02:54 Antibiotics) acetaminophen [From Vicodin] AdvReac Unknown Verified 12/18/23 02:54 hydrocodone [From Vicodin] AdvReac Unknown Verified 12/18/23 02:54 lisinopril AdvReac Unknown Verified 12/18/23 02:54 - Social History Does the pt smoke?: No Smoking Status: Never smoker Does the pt drink ETOH?: No Does the pt have substance abuse?: No - Immunizations Immunizations are current?: Yes - POLST Patient has POLST: No PD ED PE NORMAL - Vitals Vital signs reviewed: Yes - General General: No acute distress, Other (elderly appearing AOX1) - HEENT HEENT: Atraumatic, PERRL, EOMI, Moist mucous membranes, Pharynx benign - Neck Neck: Supple, no meningeal sign - Cardiac Cardiac: Other (tachycardic rate, regular rhythm) - Respiratory Respiratory: No respiratory distress, Clear bilaterally - Abdomen Abdomen: Non tender, Non distended - Derm Derm: Normal color, Warm and dry - Neuro Neuro: No motor deficit, No sensory deficit Eye Opening: Spontaneous Motor: Obeys Commands Verbal: Confused GCS Score: 14 Results - Vitals Vitals: Vital Signs - 24 hr 12/18/23 12/18/23 12/18/23 02:55 03:01 03:47 Temperature 37.9 C Heart Rate 114 H 109 H 110 H Respiratory 18 90 H 22 Rate Blood Pressure 170/64 H 158/69 H 158/92 H O2 Saturation 96 94 94 12/18/23 12/18/23 03:55 04:47 Temperature 37.0 C Heart Rate 114 H Respiratory 18 Rate Blood Pressure 140/90 H O2 Saturation 95 Oxygen O2 Source Room air - EKG (time done) 0311 EKG releavant findings:: EKG personally interpreted by author of this note. Relevant findings are: Rate: Rate (enter#) (109) Rhythm: Sinus tachycardia Intervals: LBBB (no prior ekg available but does not meet criteria for stemi per modified sgarbossa criteria. further, patient does not c/o pain in chest or anywhere) - Labs Labs: Laboratory Tests 12/18/23 12/18/23 12/18/23 02:59 02:59 02:59 WBC 12.3 H RBC 3.92 L Hgb 11.3 L Hct 34.5 L MCV 88.0 MCH 28.8 MCHC 32.8 RDW 13.9 Plt Count 247 MPV 9.5 Neut # (Auto) 10.9 H Lymph # (Auto) 0.4 L [place] # (Auto) 0.9 Eos # (Auto) 0.1 Baso # (Auto) 0.1 Absolute Nucleated RBC 0.00 Nucleated RBC % 0.0 VBG pH VBG pCO2 VBG pO2 VBG HCO3 VBG Total CO2 VBG O2 Saturation VBG Base Excess Sodium 136 Potassium 3.8 Chloride 100 L Carbon Dioxide 27 Anion Gap 9.0 BUN 11 Creatinine 0.7 Estimated GFR (MDRD) 80 L Glucose 216 H Lactic Acid Calcium 9.6 Total Bilirubin 0.6 AST 19 ALT 20 Alkaline Phosphatase 63 Troponin I High Sens 10.2 Total Protein 7.2 Albumin 4.4 Globulin 2.8 Albumin/Globulin Ratio 1.6 Nasal Adenovirus (PCR) Nasal B. parapertussis DNA (PCR) Nasal Coronavir 229E PCR Nasal Coronavir HKU1 PCR Nasal Coronavir NL63 PCR Nasal Coronavir OC43 PCR Nasal Enterovir/Rhinovir PCR Nasal Influenza B PCR Nasal Influenza A PCR Nasal Parainfluen 1 PCR Nasal Parainfluen 2 PCR Nasal Parainfluen 3 PCR Nasal Parainfluen 4 PCR Nasal RSV (PCR) Nasal B.pertussis DNA PCR Nasal C.pneumoniae (PCR) Sarah Human Metapneumo PCR Nasal M.pneumoniae (PCR) Nasal SARS-CoV-2 (PCR) 12/18/23 12/18/23 12/18/23 03:00 03:10 03:10 WBC RBC Hgb Hct MCV MCH MCHC RDW Plt Count MPV Neut # (Auto) Lymph # (Auto) [place] # (Auto) Eos # (Auto) Baso # (Auto) Absolute Nucleated RBC Nucleated RBC % VBG pH 7.416 H VBG pCO2 40.0 L VBG pO2 30.6 VBG HCO3 25.1 VBG Total CO2 26.4 VBG O2 Saturation 62.4 VBG Base Excess 0.6 Sodium Potassium Chloride Carbon Dioxide Anion Gap BUN Creatinine Estimated GFR (MDRD) Glucose Lactic Acid 1.1 Calcium Total Bilirubin AST ALT Alkaline Phosphatase Troponin I High Sens Total Protein Albumin Globulin Albumin/Globulin Ratio Nasal Adenovirus (PCR) NOT DETECTED Nasal B. parapertussis DNA (PCR) NOT DETECTED Nasal Coronavir 229E PCR NOT DETECTED Nasal Coronavir HKU1 PCR NOT DETECTED Nasal Coronavir NL63 PCR NOT DETECTED Nasal Coronavir OC43 PCR NOT DETECTED Nasal Enterovir/Rhinovir PCR NOT DETECTED Nasal Influenza B PCR NOT DETECTED Nasal Influenza A PCR NOT DETECTED Nasal Parainfluen 1 PCR NOT DETECTED Nasal Parainfluen 2 PCR NOT DETECTED Nasal Parainfluen 3 PCR NOT DETECTED Nasal Parainfluen 4 PCR NOT DETECTED Nasal RSV (PCR) NOT DETECTED Nasal B.pertussis DNA PCR NOT DETECTED Nasal C.pneumoniae (PCR) NOT DETECTED Sarah Human Metapneumo PCR NOT DETECTED Nasal M.pneumoniae (PCR) NOT DETECTED Nasal SARS-CoV-2 (PCR) DETECTED A PD Medical Decision Making - ED course ED course: 83-year-old woman presents brought in by EMS for listhesis and confusion this evening with possible report of cough. CBC, abdominal panel, lactic acid, blood culture x 2, chest x-ray, head ct, EKG, VBG, RVP ordered. ekg shows LBBB without previous available for comparison. patient without acute soa, cp or other indications of mi. per mod sgarbossa criteria her ekg does not demonstrate ischemic changes. cbc and abdominal panel revealed wbc 12.3, indicating inflammation in the body. hb 11.3 stable from previous. vbg shows hyperventilatory pattern. lactic acid is normal at 1.1, pointing away from sepsis as cause for her ams. rvp shows covid. ct head and cxr look pretty benign. d/w patient and . she is less confused now and requesting to go home. offered to admit her for inpatient management given her hypoxia, persistent tachycardia despite ivf, ams. Departure - Departure Disposition: 66 [facility] DC/Xfer Clinical Impression: Altered mental status, COVID, Tachycardia, Hypoxia Condition: Fair Forms: PCP List
[2023-12-18 03:06] LABS: BASOPHILS # (AUTO) 0.1 10^3/uL (0.0-0.1); BASOPHILS % (AUTO) 0.4 %; EOSINOPHILS # (AUTO) 0.1 10^3/uL (0.0-0.7); EOSINOPHILS % (AUTO) 0.5 %; HCT - HEMATOCRIT 34.5 % (37.0-47.0); HGB - HEMOGLOBIN 11.3 g/dL (12.0-16.0); LYMPHOCYTES # (AUTO) 0.4 10^3/uL (1.5-3.5); LYMPHOCYTES % (AUTO) 3.3 %; MEAN CORPUSCULAR HEMOGLOBIN 28.8 pg (27.0-31.0); MEAN CORPUSCULAR HGB CONC 32.8 g/dL (32.0-36.0); MEAN PLATELET VOLUME 9.5 fL (7.9-10.8); MONOCYTES # (AUTO) 0.9 10^3/uL (0.0-1.0); MONOCYTES % (AUTO) 6.9 %; NEUTROPHILS # (AUTO) 10.9 10^3/uL (1.5-6.6); NEUTROPHILS % (AUTO) 88.7 %; PLT - PLATELET COUNT 247 10^3/uL (130-450); RED BLOOD COUNT 3.92 10^6/uL (4.20-5.40); RED CELL DISTRIBUTION WIDTH 13.9 % (12.0-15.0); WHITE BLOOD COUNT 12.3 x10^3/uL (4.8-10.8)
[2023-12-18 03:19] LABS: ALBUMIN 4.4 g/dL (3.2-5.5); ALBUMIN/GLOBULIN RATIO 1.6 (1.0-2.2); BILIRUBIN,TOTAL 0.6 mg/dL (0.2-1.0); CALCIUM 9.6 mg/dL (8.5-10.3); CREATININE 0.7 mg/dL (0.6-1.3); POTASSIUM 3.8 mmol/L (3.5-4.5); TOTAL PROTEIN 7.2 g/dL (6.4-8.9)
[2023-12-18] MEDS: SODIUM CHLORIDE 0.9% 500 ML IV STA ×2 (03:25→04:49)
[2023-12-18 03:28] LABS: VBG BASE EXCESS 0.6 mmol/L (-2 - +2); VBG HCO3 25.1 mmol/L (23-28); VBG OXYGEN SATURATION 62.4 % (60-80); VBG PH 7.416 (7.31-7.41); VBG PO2 30.6 mmHg (25-47); VBG TOTAL CO2 26.4 mmol/L (24-29)
[2023-12-18] MEDS: ACETAMINOPHEN 325 MG TABLET PO STA (03:36)
[2023-12-18 04:05] LABS: CORONAVIRUS 229E-RESP PCR NOT DETECTED; CORONAVIRUS HKU1-RESP PCR NOT DETECTED; CORONAVIRUS NL63-RESP PCR NOT DETECTED; CORONAVIRUS OC43-RESP PCR NOT DETECTED
[2023-12-18 04:06] LABS: B. PARAPERTUSSIS- RESP PCR PAN NOT DETECTED; B. PERTUSSIS- RESP PCR PANEL NOT DETECTED; C. PNEUMONIAE- RESP PCR PANEL NOT DETECTED; HUMAN METAPNEUMOVIRUS NOT DETECTED; INFLUENZA A- RESP PCR PANEL NOT DETECTED; INFLUENZA B - RESP PCR PANEL NOT DETECTED; M. PNEUMONIAE- RESP PCR PANEL NOT DETECTED; PARAINFLUENZA VIRUS 1 NOT DETECTED; PARAINFLUENZA VIRUS 2 NOT DETECTED; PARAINFLUENZA VIRUS 3 NOT DETECTED; PARAINFLUENZA VIRUS 4 NOT DETECTED; RHINOVIRUS/ENTEROVIRUS NOT DETECTED; RSV- RESP PCR PANEL NOT DETECTED; SARS-CoV-2 -RESP PCR PANEL DETECTED
[2023-12-18 04:46] LABS: BILIRUBIN,URINE NEGATIVE (NEGATIVE); GLUCOSE, URINE (UA) 250 mg/dL (NEGATIVE); KETONES,URINE (UA) NEGATIVE (NEGATIVE); LEUKOCYTE ESTERASE, URINE SMALL (NEGATIVE); NITRITE,URINE NEGATIVE (NEGATIVE); OCCULT BLOOD,URINE TRACE-INTA (NEGATIVE); PROTEIN,URINE TRACE mg/dL (NEGATIVE); UROBILINOGEN,URINE 1 (NORMAL) E.U./dL (NORMAL)
[2023-12-18 04:53] LABS: CLARITY,URINE CLEAR (CLEAR)
[2023-12-18 04:56] LABS: BACTERIA,URINE Rare /HPF (None Seen); RBC,URINE 0-5 /HPF (0-5); SQUAMOUS EPITHELIAL CELL,UR FEW Squamous (<= Few)
[2023-12-18] MEDS ORDERED: FLUTICASONE NASAL SPRAY NAS PRN (06:23)
[2023-12-18] MEDS ORDERED: SODIUM CHLORIDE FLUSH 0.9% 10 ML SYRINGE IVP PRN (06:23)
[2023-12-18] MEDS ORDERED: ONDANSETRON ODT 4 MG TABLET TL PRN (06:23)
[2023-12-18] MEDS ORDERED: ALBUTEROL NEB 2.5 MG/3 ML INH PRN (06:31)
[2023-12-18 07:24] LABS: CHOL/HDL RATIO 2.1 (<4.4); CHOLESTEROL 130 mg/dL; HDL CHOLESTEROL 62 mg/dL; LDL CHOLESTEROL,CALCULATED 47 mg/dL; LDL/HDL RATIO 0.8 (<4.4); TRIGLYCERIDES 107 mg/dL (48-352); VLDL CHOLESTEROL 21 mg/dL
[2023-12-18 07:35] LABS: THYROID STIMULATING HORMONE 0.35 uIU/mL (0.34-5.60)
[2023-12-18] MEDS: MULTIVITAMIN TABLET PO SCH (07:45)
[2023-12-18] MEDS: SODIUM CHLORIDE FLUSH 0.9% 10 ML SYRINGE IVP SCH (07:45)
[2023-12-18] MEDS: LACTATED RINGERS 1,000 ML IV SCH (07:45)
[2023-12-18] MEDS: INSULIN LISPRO 300 UNIT/3 ML PEN SUBQ SCH (07:49)
[2023-12-18] MEDS: IPRATROPIUM/ALBUTEROL 3 ML NEB INH SCH (07:54)
--- NOTE | 2023-12-18 07:58 | CT Report ---
PROCEDURE: Head WO INDICATIONS: ams TECHNIQUE: Noncontrast 4.5 mm thick angled axial sections acquired from the foramen magnum to the vertex. For r adiation dose reduction, the following was used: automated exposure control, adjustment of mA and/or kV according to patient size. COMPARISON: 12/24/2022. FINDINGS: Image quality: Excellent. CSF spaces: Basal cisterns are patent. No extra-axial fluid collections. Ventricles are normal in size and shape. Brain: No midline shift. No intracranial masses or hemorrhage. Head-white matter interface is norm al. Skull and face: Benign lucency in left frontal calvarium, stable. Calvarium and visualized facial jenaro onofre are intact, without suspicious lesions. Sinuses: Visualized sinuses and mastoids are clear. IMPRESSION: No acute intracranial pathology. Findings are concordant with preliminary interpretation provided by [facility]. Reviewed by: Mono Roque MD on 12/18/2023 7:57 AM PDT Approved by: Mono Roque MD on 12/18/2023 7:57 AM PDT Station ID: [id number]
--- NOTE | 2023-12-18 08:14 | XRAY Report ---
PROCEDURE: Chest 1V INDICATIONS: Sepsis TECHNIQUE: One view of the chest was acquired. COMPARISON: None. FINDINGS: Surgical changes and devices: None. Lungs and pleura: No pleural effusions or pneumothorax. Question small focal infiltrate in the right lung base. Mediastinum: Mediastinal contours appear normal. Heart size is normal. Bones and chest wall: No suspicious bony lesions. Overlying soft tissues appear unremarkable. IMPRESSION: Question small focal right basilar pneumonia. Progress films are recommended until clear. Findings are concordant with preliminary interpretation provided by [facility]. Reviewed by: Mono Roque MD on 12/18/2023 8:12 AM PDT Approved by: Mono Roque MD on 12/18/2023 8:12 AM PDT Station ID: [id number]
[2023-12-18 09:20] LABS: ESTIMATED AVERAGE GLUCOSE 186 mg/dL (70-100); HEMOGLOBIN A1c% 8.1 % (4.27-6.07)
[2023-12-18] MEDS: dexAMETHasone 4 MG TABLET PO SCH (09:41)
[2023-12-18] MEDS: ASPIRIN CHEW 81 MG TABLET PO SCH (09:42)
[2023-12-18] MEDS: ASCORBIC ACID 500 MG TABLET PO SCH (09:42)
[2023-12-18] MEDS: CHOLECALCIFEROL 400 UNIT TABLET PO SCH (09:42)
[2023-12-18] MEDS: FAMOTIDINE 20 MG/2 ML VIAL IVP SCH (09:42)
[2023-12-18] MEDS: ZINC SULFATE 220 MG CAPSULE PO SCH (09:43)
[2023-12-18] MEDS: BENZONATATE 100 MG CAPSULE PO PRN (09:43)
[2023-12-18] MEDS: AZITHROMYCIN INJ 500 MG in SODIUM CHLORIDE 0.9% 250 ML IV SCH (09:43)
[2023-12-18] MEDS: FOLIC ACID 1 MG TABLET PO SCH (09:43)
[2023-12-18] MEDS: LOSARTAN 50 MG TABLET PO SCH (09:43)
[2023-12-18] MEDS: ENOXAPARIN 40 MG/0.4 ML SYRINGE SUBQ SCH (10:09)
[2023-12-18] MEDS: cefTRIAXone 1 GM in SODIUM CHLORIDE 0.9% MINIBAG 100 ML IV SCH (10:10)
--- NOTE | 2023-12-18 10:29 | HISTORY & PHYSICAL EXAMINATION ---
Chief Complaint - Chief Complaint Chief Complaint: confusion/cough (COVID) <Carlos Enrique Reardon - Last Filed: 12/18/23 14:08> History of Present Illness - Admitted From Admitted From:: ER - History Obtained From Records Reviewed: yes History obtained from: Heather Singh <Carlos Enrique Reardon - Last Filed: 12/18/23 14:08> - History of Present Illness HPI Comment/Other: MRs. Singh is an 83 yr old female who has been admitted from the ER under observational status due to general weakness, AMS, and COVID. The patient received abx treatment while in the ER ([id number] and azithromycin 500mg). The patient is too weak to get up out of the toilet without a significant amount of assistance. Her was unable to get her up off the toilet for hours prior to visit to the ER. Per RN she is slightly confused and needs cueing when toileting. She was attempting to utilize the bathroom but was standing in the wrong place to perform the task and the nurse had to verbally re-adjust her. She is eating and drinking about 70% of her food and liquids per RN. She expressed that she has no recollection of when she become symptomatic. She reports experiencing slight dizziness w/ no syncopy. slight AMS; disoriented to time. non productive cough that worsened temporarily with duoneb treament. 2 episodes of mild emesis with scant particles and saliva. Mrs. Singh is exhibiting behavior that suggest that she would benefit from mild assistance from a home care service. CXR report stated question of small focal right basilar PNA. Recommendation for progress film until clear. 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 - Substance History Use: Uses substance without health or social issues: NONE Abuse: Recurrent use of substance despite neg consequences: NONE Dependence: Experiences withdrawal or developed tolerances: NONE - POLST Patient has POLST: No <Carlos Enrique Reardon - Last Filed: 12/18/23 14:08> Meds/Allgy <Carlos Enrique Reardon - Last Filed: 12/18/23 14:08> <Yady Park - Last Filed: 12/18/23 17:34> - Home Medications Home Medications: Ambulatory Orders Medication Instructions Recorded Confirmed Aspirin 81 mg PO DAILY 04/21/18 12/18/23 Atorvastatin Calcium 40 mg PO HS 10/06/18 12/18/23 Fluticasone Propionate 1 spray SARAH DAILY PRN 10/06/18 08/28/20 Telmisartan [Micardis] 40 mg PO DAILY 10/06/18 12/18/23 Insulin Glargine [Lantus Solostar] 16 units SQ DAILY #1 08/28/20 12/18/23 Amlodipine Besylate [Norvasc] 2.5 mg PO DAILY 12/18/23 12/18/23 metFORMIN [Glucophage] 1,000 mg PO BID 12/18/23 12/18/23 - Allergies Allergies/Adverse Reactions: Allergies Allergy/AdvReac Type Severity Reaction Status Date / Time Sulfa (Sulfonamide Allergy Anaphylaxis Verified 12/18/23 02:54 Antibiotics) acetaminophen [From Vicodin] AdvReac Unknown Verified 12/18/23 02:54 hydrocodone [From Vicodin] AdvReac Unknown Verified 12/18/23 02:54 lisinopril AdvReac Unknown Verified 12/18/23 02:54 Review of Systems - Constitutional Constitutional: reports: Weakness. denies: Fever, Chills, Diaphoresis, Night sweats, Weight loss - Cardiovascular Cariovascular: reports: Irregular heart rate, Palpitations, Lightheadedness. denies: Chest pain, Edema, Syncope, Orthopnea - Respiratory Respiratory: reports: Cough. denies: Sputum production, Hemoptysis, Orthopnea, SOB at rest, Pleuritic pain - Gastrointestinal Gastrointestinal: reports: Nausea, Vomiting. denies: Abdominal pain, Abdominal distention, Frantz blood emesis - Genitourinary Genitourinary: denies: Dysuria, Frequency, Hematuria - Neurological Neurological: reports: General weakness, Dizziness. denies: Numbness - Endocrine Endocrine: denies: Polyuria <Carlos Enrique Reardon - Last Filed: 12/18/23 14:08> <Carlos Enrique Reardon - Last Filed: 12/18/23 14:08> Prior Level of Functionality: Lives at home with her , states that they dont do much, just watch TV mo stly. She alludes to doing nml day-to-day activities i.e toileting, house hold chores w/o need of an inordinate amount of assistance. (Carlos Enrique Reardon) Exam - Vital Signs Reviewed Vital Signs: Yes - Physical Exam General Appearance: positive: No acute distress Eyes Bilateral: positive: Normal inspection, PERRL Neck: positive: Thyroid nml, No JVD, Trachea midline, Thyromegaly. negative: Lymphadenopathy (R), Lymphadenopathy (L) Respiratory: positive: Chest non-tender, No respiratory distress Cardiovascular: positive: Regular rate & rhythm, No murmur, No gallop Peripheral Pulses: positive: 2+ Abdomen: positive: Non-tender, No organomegaly, Nml bowel sounds, No distention. negative: Guarding, Rebound Skin: positive: Color nml, Warm. negative: Cyanosis, Diaphoresis Extremities: positive: Nml appearance, No pedal edema. negative: Joint swelling Neurologic/Psychiatric: positive: CN's nml (2-12), Motor nml, Sensation nml, Mood/affect nml, Disoriented to time, Weakness <Carlos Enrique Reardon - Last Filed: 12/18/23 14:08> - Vital Signs Vital Signs: Vital Signs x48h Temp Pulse Pulse Resp BP Pulse Ox Pulse Ox 12/18/23 16:38 37.1 C 91 16 123/76 95 12/18/23 15:15 93 12/18/23 15:00 89 16 12/18/23 11:40 37.4 C 104 H 20 151/75 H 92 12/18/23 10:48 79 18 Sepsis Event Note (H) - Evaluation Current Stage of Sepsis: Ruled out <Carlos Enrique Reardon - Last Filed: 12/18/23 14:08> Conclusion/Plan - Problem List (1) Altered mental status Conclusion/Plan: Conclusion: Due to COVID infection and she is experiencing weakness/fatigue, lab values reflect low Hgb,Hct, RBC, O2 sat at 92%. Plan: Treati COVID; see plan above Gentle hydration Oxygen therapy Mange blood glucose and reassess with POC glucose readings (2) COVID Conclusion/Plan: Conclusion: Though she denies SOB her O2 sat is @ 92%. She has a slightly elevated WBC. Symptomatic with cough. fatigue. tachycardic. Nasal SARS-CoV-2(PCR) was Positive (detected A). Plan: Treat with Paxlovid PO BID. adjunct therapy Duoneb Oxygen therapy. Have PT/OT perform an assessment Respiratory Therapist treatment Discharge home tomorrow with suggestion for home care (3) DM type 2 (diabetes mellitus, type 2) Conclusion/Plan: Conclusion: Preexisting condition with todays A1c reading @ 8.1 Plan: Continue to treat with Insulin Human Lispro and lantus (4) Cognitive impairment Conclusion/Plan: Conclusion: Mrs. Singh has displayed signs that prelude to cognitive deficits. She has displayed memory impairment in recollecting what day it is and her current location. She also displays issues with self-monitoring. This impairment to her executive function has left unable to recognize the mistake of attempting to toilet in the appropriate location and self correct that. Plan: I would recommend the patient should get a pet scan for evaluation refer her to work with PT and OT (5) Problem related to discharge planning Conclusion/Plan: Conclusion: Mrs. Singh has general weakness and is unable to get up from toileting independently and her is unable to assist her with that task. Today prior to her visit to the ER, she was stuck on the toilet due to her inability get her self up and her husbands inability to assist her. Plan: discuss with the family the options they have and what they would like to pu rsue. She could be transferred to a usp or have home health. At this time plan is to discharge patient home and set up home care with PT and OT - Lab Results Lab results reviewed: Yes César Bones: 12/18/23 02:59 12/18/23 10:09 - EKG Results EKG Interpreted Independently: Yes <Carlos Enrique Reardon - Last Filed: 12/18/23 14:08> - Lab Results Fish Bones: 12/18/23 02:59 12/18/23 10:09 <Yady Park - Last Filed: 12/18/23 17:34>
[2023-12-18 10:33] LABS: ALBUMIN 3.8 g/dL (3.2-5.5); ALBUMIN/GLOBULIN RATIO 1.4 (1.0-2.2); BILIRUBIN,TOTAL 0.5 mg/dL (0.2-1.0); CREATININE 0.6 mg/dL (0.6-1.3); POTASSIUM 3.5 mmol/L (3.5-4.5); TOTAL PROTEIN 6.5 g/dL (6.4-8.9)
--- NOTE | 2023-12-18 11:26 | PHARMACY PROGRESS NOTE ---
- Best Possible Medication History Admit Date and Time: 12/18/23622 Processed by: Pharmacy Medications reviewed in ED?: No Medication History completed: Yes Patient Interview: Pt unable to participate Secondary Source(s): Insurance records As the person ultimately responsible for medication therapy, providers are able to order a medication from an existing home medication list in [facility] via the "Reconcile Routine" prior to Confirmation of that medication by it desktop support technician. Such practice is discouraged except when the physician, in their clinical judgment, deems that a medical need exists for a medication without regard to previous use.
[2023-12-18] MEDS: RITONAVIR PO SCH (12:03)
[2023-12-18] MEDS: NIRMATRELVIR PO SCH (12:03)
[2023-12-18] MEDS: INSULIN GLARGINE-YFGN 300 UNIT/3 ML PEN SUBQ SCH (21:19)
[2023-12-19 05:51] LABS: BASOPHILS % (AUTO) 0.4 %; HCT - HEMATOCRIT 30.6 % (37.0-47.0); HGB - HEMOGLOBIN 9.8 g/dL (12.0-16.0); LYMPHOCYTES # (AUTO) 0.9 10^3/uL (1.5-3.5); LYMPHOCYTES % (AUTO) 10.8 %; MEAN CORPUSCULAR HEMOGLOBIN 28.3 pg (27.0-31.0); MEAN CORPUSCULAR VOLUME 88.4 fL (81.0-99.0); MEAN PLATELET VOLUME 9.6 fL (7.9-10.8); MONOCYTES # (AUTO) 0.6 10^3/uL (0.0-1.0); MONOCYTES % (AUTO) 6.4 %; PLT - PLATELET COUNT 223 10^3/uL (130-450); RED BLOOD COUNT 3.46 10^6/uL (4.20-5.40); RED CELL DISTRIBUTION WIDTH 13.8 % (12.0-15.0); WHITE BLOOD COUNT 8.6 x10^3/uL (4.8-10.8)
[2023-12-19 06:08] LABS: CALCIUM 9.5 mg/dL (8.5-10.3); CREATININE 0.6 mg/dL (0.6-1.3); MAGNESIUM 1.9 mg/dL (1.7-2.3); POTASSIUM 3.5 mmol/L (3.5-4.5)
[2023-12-19] MEDS ORDERED: ALBUTEROL 1 PUFF INH PRN (08:28)
[2023-12-19] MEDS: amLODIPine 5 MG TABLET PO SCH (08:42)
[2023-12-19] MEDS: cefTRIAXone 1 GM in SODIUM CHLORIDE 0.9% MINIBAG 100 ML IV SCH (08:43)
--- NOTE | 2023-12-19 10:32 | PROVIDER PROGRESS NOTE ---
Assessment/Plan - Problem List (1) Altered mental status Assessment/Plan: --Mental status has returned to baseline. --Etiology was likely underlying COVID-19 infection. --Working with PT/OT. At baseline uses a walker. Anticipate she will return home in next 24 hours. (2) COVID Assessment/Plan: --No longer on oxygen. She is on Paxlovid. (3) DM type 2 (diabetes mellitus, type 2) Assessment/Plan: --Continue with insulin. Her A1c is 8.1. - Current Meds Current Meds: Current Medications Generic Name Dose Route Start Last Admin Trade Name Freq PRN Reason Stop Dose Admin Amlodipine Besylate 2.5 mg 12/19/23 09:00 12/19/23 08:42 Amlodipine 5 Mg Tablet PO 2.5 mg DAILY EMILY Administration Ascorbic Acid 500 mg 12/18/23 09:00 12/19/23 08:42 Ascorbic Acid 500 Mg Tablet PO 500 mg DAILY EMILY Administration Aspirin 81 mg 12/18/23 09:00 12/18/23 11:33 Aspirin Chew 81 Mg Tablet PO Not Given DAILY EMILY Benzonatate 100 mg 12/18/23 06:33 12/18/23 21:38 Benzonatate 100 Mg Capsule PO 100 mg TID PRN Administration Cough Cholecalciferol 400 unit 12/18/23 09:00 12/19/23 08:42 Cholecalciferol 400 Unit Tablet PO 400 unit DAILY EMILY Administration Dexamethasone 6 mg 12/18/23 09:00 12/19/23 08:42 Dexamethasone 4 Mg Tablet PO 6 mg DAILY EMILY Administration Enoxaparin Sodium 40 mg 12/18/23 09:00 12/18/23 10:09 Enoxaparin 40 Mg/0.4 Ml Syringe SUBQ 40 mg DAILY EMILY Administration Folic Acid 1 mg 12/18/23 09:00 12/19/23 08:42 Folic Acid 1 Mg Tablet PO 1 mg DAILY EMILY Administration Lactated Ringer's 1,000 mls @ 75 mls/hr 12/18/23 07:00 12/18/23 21:27 Lr IV 75 mls/hr .[id number] EMILY Administration Ceftriaxone Sodium 1 gm/ 100 mls @ 200 mls/hr 12/19/23 09:00 12/19/23 08:43 Sodium Chloride IV 200 mls/hr DAILY EMILY Administration Insulin Glargine-yfgn 10 unit 12/18/23 21:00 12/18/23 21:19 Insulin Glargine-Yfgn 300 Unit/3 Ml Pen SUBQ 10 unit QPM EMILY Administration Insulin Human Lispro 2 - 10 unit 12/18/23 08:00 12/18/23 21:18 Insulin Lispro 300 Unit/3 Ml Pen SUBQ 8 unit 0800,1200,1700,2100 EMILY Administration Protocol Losartan Potassium 50 mg 12/18/23 09:00 12/19/23 08:42 Losartan 50 Mg Tablet PO 50 mg DAILY EMILY Administration Multivitamins 1 tab 12/18/23 08:00 12/19/23 08:42 Multivitamin Tablet PO 1 tab DAILYWM EMILY Administration Paxlovid ( 1 each 12/18/23 11:00 12/19/23 08:44 Nirmatrelvir/ PO 12/22/23 21:01 1 each Ritonavir) Renal BID EMILY Administration Dose Pack Sodium Chloride 10 ml 12/18/23 09:00 12/19/23 08:44 Sodium Chloride Flush 0.9% 10 Ml Syringe IVP 10 ml 0100,0900,1700 EMILY Administration Zinc Sulfate 220 mg 12/18/23 09:00 12/18/23 09:43 Zinc Sulfate 220 Mg Capsule PO 220 mg DAILY EMILY Administration - Lab Result Fish Bone Diagrams: 12/19/23 05:11 12/19/23 05:11 - Additional Planning My Orders: My Active Orders 12/19/23 08:28 Mdi: Albuterol 2 puffs INH Q4HR PRN 12/19/23 09:00 amLODIPine [Norvasc] 2.5 mg PO DAILY 12/19/23 10:12 Admit [Admit \ Transfer \ Status] [RC] .ONCE 12/19/23 21:00 Atorvastatin [Lipitor] 40 mg PO HS Famotidine [Pepcid] 20 mg PO BID Subjective - Subjective Patient Reports: Feeling Better, Resting Comfortably, No Complaints Objective Vital Signs: Vital Signs - 24 hr 12/18/23 12/18/23 12/18/23 10:48 11:40 15:00 Temperature 37.4 C Heart Rate 79 89 Heart Rate [ 104 H Brachial] Respiratory 18 20 16 Rate Blood Pressure 151/75 H [Right Brachial artery] O2 Saturation 92 O2 Saturation [ With Activity] 12/18/23 12/18/23 12/18/23 15:15 16:38 17:56 Temperature 37.1 C Heart Rate 75 Heart Rate [ 91 Brachial] Respiratory 16 19 Rate Blood Pressure 123/76 [Right Brachial artery] O2 Saturation 95 O2 Saturation [ 93 With Activity] 12/18/23 12/18/23 12/19/23 20:39 23:56 05:10 Temperature 36.8 C 37.0 C 36.9 C Heart Rate Heart Rate [ 89 86 83 Brachial] Respiratory 16 24 20 Rate Blood Pressure 147/75 H 142/69 H 151/77 H [Right Brachial artery] O2 Saturation 93 94 95 O2 Saturation [ With Activity] 12/19/23 12/19/23 07:15 07:30 Temperature 36.7 C Heart Rate 80 Heart Rate [ 80 Brachial] Respiratory 18 20 Rate Blood Pressure 167/65 H [Right Brachial artery] O2 Saturation 95 O2 Saturation [ With Activity] Oxygen O2 Source [With Activity] Room air O2 Source Room air I&O (Last 24 Hrs): Intake and Output Totals x24h 12/17/23 12/18/23 12/19/23 23:59 23:59 23:59 Intake Total 3600 590 Balance 3600 590 General: Alert, Oriented x3, Cooperative Neuro: Alert Cardiovascular: Regular rate, Normal S1, Normal S2 Respiratory: Chest non-tender, No respiratory distress, Breath sounds nml - Results Results: Laboratory Results WBC 8.6 x10^3/uL (4.8-10.8) 12/19/23 05:11 RBC 3.46 10^6/uL (4.20-5.40) L 12/19/23 05:11 Hgb 9.8 g/dL (12.0-16.0) L 12/19/23 05:11 Hct 30.6 % (37.0-47.0) L 12/19/23 05:11 MCV 88.4 fL (81.0-99.0) 12/19/23 05:11 MCH 28.3 pg (27.0-31.0) 12/19/23 05:11 MCHC 32.0 g/dL (32.0-36.0) 12/19/23 05:11 RDW 13.8 % (12.0-15.0) 12/19/23 05:11 Plt Count 223 10^3/uL (130-450) 12/19/23 05:11 MPV 9.6 fL (7.9-10.8) 12/19/23 05:11 Neut # (Auto) 7.0 10^3/uL (1.5-6.6) H 12/19/23 05:11 Lymph # (Auto) 0.9 10^3/uL (1.5-3.5) L 12/19/23 05:11 Emanuel # (Auto) 0.6 10^3/uL (0.0-1.0) 12/19/23 05:11 Eos # (Auto) 0.0 10^3/uL (0.0-0.7) 12/19/23 05:11 Baso # (Auto) 0.0 10^3/uL (0.0-0.1) 12/19/23 05:11 Absolute Nucleated RBC 0.00 x10^3/uL 12/19/23 05:11 Nucleated RBC % 0.0 /100WBC 12/19/23 05:11 VBG pH 7.416 (7.31-7.41) H 12/18/23 03:10 VBG pCO2 40.0 mmHg (41-51) L 12/18/23 03:10 VBG pO2 30.6 mmHg (25-47) 12/18/23 03:10 VBG HCO3 25.1 mmol/L (23-28) 12/18/23 03:10 VBG Total CO2 26.4 mmol/L (24-29) 12/18/23 03:10 VBG O2 Saturation 62.4 % (60-80) 12/18/23 03:10 VBG Base Excess 0.6 mmol/L (-2 - +2) 12/18/23 03:10 Sodium 139 mmol/L (135-145) 12/19/23 05:11 Potassium 3.5 mmol/L (3.5-4.5) 12/19/23 05:11 Chloride 106 mmol/L (101-111) 12/19/23 05:11 Carbon Dioxide 28 mmol/L (21-32) 12/19/23 05:11 Anion Gap 5.0 (6-13) L 12/19/23 05:11 BUN 12 mg/dL (6-20) 12/19/23 05:11 Creatinine 0.6 mg/dL (0.6-1.3) 12/19/23 05:11 Estimated GFR (MDRD) 96 (>89) 12/19/23 05:11 Glucose 209 mg/dL (74-104) H 12/19/23 05:11 POC Whole Bld Glucose 175 mg/dL (70 - 100) H 12/19/23 07:24 Estimat Average Glucose 186 mg/dL (70-100) H 12/18/23 02:59 Hemoglobin A1c % 8.1 % (4.27-6.07) H 12/18/23 02:59 Lactic Acid 1.1 mmol/L (0.5-2.2) 12/18/23 03:10 Calcium 9.5 mg/dL (8.5-10.3) 12/19/23 05:11 Magnesium 1.9 mg/dL (1.7-2.3) 12/19/23 05:11 Total Bilirubin 0.5 mg/dL (0.2-1.0) 12/18/23 10:09 AST 17 IU/L (10-42) 12/18/23 10:09 ALT 17 IU/L (10-60) 12/18/23 10:09 Alkaline Phosphatase 48 IU/L (42-121) 12/18/23 10:09 Troponin I High Sens 10.2 ng/L (2.3-14.8) 12/18/23 02:59 Total Protein 6.5 g/dL (6.4-8.9) 12/18/23 10:09 Albumin 3.8 g/dL (3.2-5.5) 12/18/23 10:09 Globulin 2.7 g/dL (2.1-4.2) 12/18/23 10:09 Albumin/Globulin Ratio 1.4 (1.0-2.2) 12/18/23 10:09 Triglycerides 107 mg/dL (48-352) 12/18/23 02:59 Cholesterol 130 mg/dL (-200) 12/18/23 02:59 LDL Cholesterol, Calc 47 mg/dL (-129) 12/18/23 02:59 VLDL Cholesterol 21 mg/dL 12/18/23 02:59 HDL Cholesterol 62 mg/dL (60-) 12/18/23 02:59 LDL/HDL Ratio 0.8 (<4.4) 12/18/23 02:59 Cholesterol/HDL Ratio 2.1 (<4.4) 12/18/23 02:59 TSH 0.35 uIU/mL (0.34-5.60) 12/18/23 02:59 Urine Color YELLOW 12/18/23 04:38 Urine Clarity CLEAR (CLEAR) 12/18/23 04:38 Urine pH 7.0 PH (5.0-7.5) 12/18/23 04:38 Ur Specific Maidens 1.010 (1.002-1.030) 12/18/23 04:38 Urine Protein TRACE mg/dL (NEGATIVE) 12/18/23 04:38 Urine Glucose (UA) 250 mg/dL (NEGATIVE) H 12/18/23 04:38 Urine Ketones NEGATIVE mg/dL (NEGATIVE) 12/18/23 04:38 Urine Occult Blood TRACE-INTA (NEGATIVE) 12/18/23 04:38 Urine Nitrite NEGATIVE (NEGATIVE) 12/18/23 04:38 Urine Bilirubin NEGATIVE (NEGATIVE) 12/18/23 04:38 Urine Urobilinogen 1 (NORMAL) E.U./dL (NORMAL) 12/18/23 04:38 Ur Leukocyte Esterase SMALL (NEGATIVE) H 12/18/23 04:38 Urine RBC 0-5 /HPF (0-5) 12/18/23 04:38 Urine WBC 4-5 /HPF (0-5) 12/18/23 04:38 Ur Squamous Epith Cells FEW Squamous (<= Few) 12/18/23 04:38 Urine Bacteria Rare /HPF (None Seen) 12/18/23 04:38 Urine Culture Comments INDICATED 12/18/23 04:38 Nasal Adenovirus (PCR) NOT DETECTED 12/18/23 03:00 Nasal B. parapertussis DNA (PCR) NOT DETECTED 12/18/23 03:00 Nasal Coronavir 229E PCR NOT DETECTED 12/18/23 03:00 Nasal Coronavir HKU1 PCR NOT DETECTED 12/18/23 03:00 Nasal Coronavir NL63 PCR NOT DETECTED 12/18/23 03:00 Nasal Coronavir OC43 PCR NOT DETECTED 12/18/23 03:00 Nasal Enterovir/Rhinovir PCR NOT DETECTED 12/18/23 03:00 Nasal Influenza B PCR NOT DETECTED 12/18/23 03:00 Nasal Influenza A PCR NOT DETECTED 12/18/23 03:00 Nasal Parainfluen 1 PCR NOT DETECTED 12/18/23 03:00 Nasal Parainfluen 2 PCR NOT DETECTED 12/18/23 03:00 Nasal Parainfluen 3 PCR NOT DETECTED 12/18/23 03:00 Nasal Parainfluen 4 PCR NOT DETECTED 12/18/23 03:00 Nasal RSV (PCR) NOT DETECTED 12/18/23 03:00 Nasal B.pertussis DNA PCR NOT DETECTED 12/18/23 03:00 Nasal C.pneumoniae (PCR) NOT DETECTED 12/18/23 03:00 Aleksandr Human Metapneumo PCR NOT DETECTED 12/18/23 03:00 Nasal M.pneumoniae (PCR) NOT DETECTED 12/18/23 03:00 Nasal SARS-CoV-2 (PCR) DETECTED A 12/18/23 03:00 Sepsis Event Note (H) - Evaluation Current Stage of Sepsis: Ruled out ABX Reporting Has patient been on IV antibiotics over the past 48 hours?: No
[2023-12-19] MEDS: AZITHROMYCIN INJ 250 MG in SODIUM CHLORIDE 0.9% 250 ML IV SCH (11:15)
[2023-12-19] MEDS: INSULIN LISPRO 300 UNIT/3 ML PEN SUBQ SCH (16:54)
[2023-12-19] MEDS: ATORVASTATIN 40 MG TABLET PO SCH (21:03)
[2023-12-19] MEDS: FAMOTIDINE 20 MG TABLET PO SCH (21:03)
[2023-12-20 05:59] LABS: BASOPHILS % (AUTO) 0.1 %; HCT - HEMATOCRIT 29.8 % (37.0-47.0); HGB - HEMOGLOBIN 9.8 g/dL (12.0-16.0); LYMPHOCYTES # (AUTO) 0.9 10^3/uL (1.5-3.5); LYMPHOCYTES % (AUTO) 9.3 %; MEAN CORPUSCULAR HEMOGLOBIN 28.7 pg (27.0-31.0); MEAN CORPUSCULAR HGB CONC 32.9 g/dL (32.0-36.0); MEAN CORPUSCULAR VOLUME 87.1 fL (81.0-99.0); MEAN PLATELET VOLUME 9.6 fL (7.9-10.8); MONOCYTES # (AUTO) 0.5 10^3/uL (0.0-1.0); MONOCYTES % (AUTO) 4.7 %; NEUTROPHILS # (AUTO) 8.4 10^3/uL (1.5-6.6); NEUTROPHILS % (AUTO) 85.3 %; PLT - PLATELET COUNT 249 10^3/uL (130-450); RED BLOOD COUNT 3.42 10^6/uL (4.20-5.40); RED CELL DISTRIBUTION WIDTH 14.1 % (12.0-15.0); WHITE BLOOD COUNT 9.9 x10^3/uL (4.8-10.8)
[2023-12-20 06:13] LABS: CALCIUM 9.3 mg/dL (8.5-10.3); CREATININE 0.6 mg/dL (0.6-1.3); POTASSIUM 3.5 mmol/L (3.5-4.5)
--- NOTE | 2023-12-20 07:04 | Discharge Plan ---
Discharge Plan Problem Reviewed?: Yes Disposition: Home, Self Care Condition: Good Prescriptions: Cefdinir 300 mg PO BID 2 Days #4 cap dexAMETHasone [Decadron] 6 mg PO DAILY #8 tab Diet: Diabetic Activity Restrictions: Activity as Tolerated Instruction Topics: Flu and Cold: Nutrition, Prevention and Treatment Tips, COVID-19 [facility] Department Statement, COVID-19 [facility] No Smoking: If you smoke, Please STOP! Call for help.
[2023-12-20 08:15] VITALS: BP 174/85; O2SAT 95
--- NOTE | 2023-12-20 10:59 | DISCHARGE SUMMARY ---
Discharge Summary Admit Date: 12/18/23 Discharge Date: 12/20/23 Discharging Provider: Michael Nelson DO Condition at Discharge: Good Discharge Disposition: 01 Home, Self Care - DIAGNOSES Discharge Diagnoses with Status of Each Condition: 1. COVID encephalopathy - resolved 2. Hypoxia - resolved. 3. UTI - on antibiotics. - HPI History of Present Illness: Francisco is an 83 yr old female who has been admitted from the ER under observational status due to general weakness, AMS, and COVID. The patient received abx treatment while in the ER ([id number] and azithromycin 500mg). The patient is too weak to get up out of the toilet without a significant amount of assistance. Her was unable to get her up off the toilet for hours prior to visit to the ER. Per RN she is slightly confused and needs cueing when toileting. She was attempting to utilize the bathroom but was standing in the wrong place to perform the task and the nurse had to verbally re-adjust her. She is eating and drinking about 70% of her food and liquids per RN. She expressed that she has no recollection of when she become symptomatic. She reports experiencing slight dizziness w/ no syncopy. slight AMS; disoriented to time. non productive cough that worsened temporarily with duoneb treament. 2 episodes of mild emesis with scant particles and saliva. Mrs. Singh is exhibiting behavior that suggest that she would benefit from mild assistance from a home care service. CXR report stated question of small focal right basilar PNA. Recommendation for progress film until clear. Head CT showed no acute intracranial pathology - HOSPITAL COURSE Hospital Course: Patient is an 83-year-old female who presented to the ED due to generalized weakness and encephalopathy. She was diagnosed with a COVID-19 infection and was also noted to be hypoxic requiring supplemental oxygen. She was admitted and started on dexamethasone for her COVID-[address] was obtained which was unremarkable. There was also question of a possible pneumonia on her chest x-ray. Along with her dexamethasone, she was started on azithromycin and ceftriaxone for suspected concurrent bacterial pneumonia. Her symptoms improved significantly and she was weaned off of supplemental oxygen. Her mental status also cleared up and she was at her baseline. She was subsequently discharged on oral dexamethasone and cefdinir. - ALLERGIES Allergies/Adverse Reactions: Allergies Allergy/AdvReac Type Severity Reaction Status Date / Time Sulfa (Sulfonamide Allergy Anaphylaxis Verified 12/18/23 02:54 Antibiotics) acetaminophen [From Vicodin] AdvReac Unknown Verified 12/18/23 02:54 hydrocodone [From Vicodin] AdvReac Unknown Verified 12/18/23 02:54 lisinopril AdvReac Unknown Verified 12/18/23 02:54 - MEDICATIONS Home Medications: Ambulatory Orders Medication Instructions Recorded Confirmed Aspirin 81 mg PO DAILY 04/21/18 12/18/23 Atorvastatin Calcium 40 mg PO HS 10/06/18 12/18/23 Fluticasone Propionate 1 spray SARAH DAILY PRN 10/06/18 08/28/20 Telmisartan [Micardis] 40 mg PO DAILY 10/06/18 12/18/23 Insulin Glargine [Lantus Solostar] 16 units SQ DAILY #1 08/28/20 12/18/23 Amlodipine Besylate [Norvasc] 2.5 mg PO DAILY 12/18/23 12/18/23 metFORMIN [Glucophage] 1,000 mg PO BID 12/18/23 12/18/23 Cefdinir 300 mg PO BID 2 Days #4 cap 12/20/23 dexAMETHasone [Decadron] 6 mg PO DAILY #8 tab 12/20/23 - PHYSICAL EXAM AT DISCHARGE General Appearance: positive: No acute distress, Alert Respiratory: positive: No respiratory distress, Breath sounds nml. negative: Wheezes Cardiovascular: positive: Regular rate & rhythm, No murmur Abdomen: positive: Non-tender, No distention Neurologic/Psychiatric: positive: Oriented x3, CN's nml (2-12) - LABS Result Diagrams: 12/20/23 05:30 12/20/23 05:30 - DIAGNOSTIC IMAGING Diagnostic Imaging Results: Final report reviewed - SEPSIS Current Stage of Sepsis: Ruled out - FOLLOW UP Follow Up: Patient requested to follow up with her PCP. - TIME SPENT Time Spent in Discharge (Minutes): 35
== END 2023-12-20 10:00 | disposition home or self-care (01) | DRG 177 ==
LOC: EDUNIT# → ED 02:50 → MS2 06:23 → INTOOBSV 06:23 → OBSVTOIN 12-19 10:12
PROVIDERS: ADMIT Student in an Organized Health Care Education/Training Program; ATTEND Family Medicine
PROC: 3E0333Z Introduction of Anti-inflammatory into Peripheral Vein, Percutaneous Approach (ICD-10-PCS; principal; 2023-12-19)
DX: U07.1 COVID-19 (principal); R41.82 Altered mental status, unspecified; J15.9 Unspecified bacterial pneumonia; N39.0 Urinary tract infection, site not specified; G93.49 Other encephalopathy; R09.02 Hypoxemia; R53.1 Weakness; E11.9 Type 2 diabetes mellitus without complications; Z79.4 Long term (current) use of insulin; Z79.84 Long term (current) use of oral hypoglycemic drugs; R00.0 Tachycardia, unspecified; I44.7 Left bundle-branch block, unspecified; F09 Unspecified mental disorder due to known physiological condition; I10 Essential (primary) hypertension; R11.2 Nausea with vomiting, unspecified
CPT/HCPCS: 36415; 70450; 71045; 80048; 80053; 80061; 81001; 82803; 83036; 83605; 83735; 84443; 84484; 85025; 87040; 87086; 87633; 93005; 94640; 96361; 96365; 96372; 96375; 96376; 97161; 97165; 99285; A9270; G0378; J1650; J1815; J7120; J8540; 83721

== ENCOUNTER 2024-04-20 12:36 | Outpatient (CLI) | payer MEDICARE, OTHER ==
[2024-04-20 17:54] LABS: BASOPHILS # (AUTO) 0.1 10^3/uL (0.0-0.1); EOSINOPHILS # (AUTO) 0.2 10^3/uL (0.0-0.7); EOSINOPHILS % (AUTO) 3.3 %; HCT - HEMATOCRIT 36.2 % (37.0-47.0); HGB - HEMOGLOBIN 11.8 g/dL (12.0-16.0); LYMPHOCYTES # (AUTO) 2.5 10^3/uL (1.5-3.5); LYMPHOCYTES % (AUTO) 34.4 %; MEAN CORPUSCULAR HEMOGLOBIN 29.1 pg (27.0-31.0); MEAN CORPUSCULAR HGB CONC 32.6 g/dL (32.0-36.0); MEAN CORPUSCULAR VOLUME 89.2 fL (81.0-99.0); MEAN PLATELET VOLUME 9.5 fL (7.9-10.8); MONOCYTES # (AUTO) 0.4 10^3/uL (0.0-1.0); MONOCYTES % (AUTO) 5.9 %; NEUTROPHILS # (AUTO) 4.1 10^3/uL (1.5-6.6); NEUTROPHILS % (AUTO) 55.1 %; PLT - PLATELET COUNT 310 10^3/uL (130-450); RED BLOOD COUNT 4.06 10^6/uL (4.20-5.40); RED CELL DISTRIBUTION WIDTH 13.2 % (12.0-15.0); WHITE BLOOD COUNT 7.3 x10^3/uL (4.8-10.8)
[2024-04-20 18:19] LABS: CREATININE,URINE 39.5 mg/dL; MICROALBUM/CREATININE RATIO,UR 146.8 ug/mg (<30.0); MICROALBUMIN,URINE 5.8 mg/dL
[2024-04-20 18:35] LABS: FERRITIN 76.4 ng/mL (11.0-306.8)
[2024-04-20 20:42] LABS: ESTIMATED AVERAGE GLUCOSE 226 mg/dL (70-100); HEMOGLOBIN A1c% 9.5 % (4.27-6.07)
== END 2024-04-20 12:37 | disposition home or self-care (01) ==
LOC: LAB.N 12:36
PROVIDERS: ATTEND Nurse Practitioner
DX: E11.8 Type 2 diabetes mellitus with unspecified complications (principal); D64.9 Anemia, unspecified
CPT/HCPCS: 36415; 82043; 82570; 82728; 83036; 83540; 84466; 85025